=== PATIENT | male | born 1960 | race Caucasian/White ===

== ENCOUNTER 2023-04-03 16:21 | Inpatient (IN) | payer BC, OTHER ==
[2023-04-03 17:23] LABS: Basophils % (A) 0 %; Eosinophils # (A) 0.2 k/uL (0-0.7); Eosinophils % (A) 3 %; HCT 48.3 % (39.0-53.0); HGB 16.3 gm/dL (13.0-17.5); Lymphocytes # (A) 2.6 k/uL (1.0-4.8); Lymphocytes % (A) 34 %; MCH 30.6 pg (25.0-35.0); MCHC 33.7 g/dL (31.0-37.0); MCV 90.7 fL (80.0-100.0); Mean Platelet Volume 7.3; Monocytes # (A) 0.5 k/uL (0-1.0); Monocytes % (A) 7 %; Neutrophils # (A) 4.2 k/uL (1.3-7.7); Neutrophils % (A) 55 %; Platelet Count 332 k/uL (150-450); RBC 5.32 m/uL (4.30-5.90); RDW 13.1 % (11.5-15.5); WBC 7.7 k/uL (3.8-10.6)
[2023-04-03 17:33] LABS: ALT 39 U/L (4-49); AST 32 U/L (17-59); African American GFR (CKD) >90 (>60 ml/min/1.73 sqM); Albumin 4.4 g/dL (3.5-5.0); Alkaline Phosphatase 93 U/L (38-126); Anion Gap 12 mmol/L; Blood Urea Nitrogen 22 mg/dL (9-20); Calcium 9.8 mg/dL (8.4-10.2); Carbon Dioxide 22 mmol/L (22-30); Chloride 107 mmol/L (98-107); Glucose 83 mg/dL (74-99); Non-African American GFR(CKD) 89 (>60 ml/min/1.73 sqM); Potassium 4.2 mmol/L (3.5-5.1); Sodium 141 mmol/L (137-145); Total Bilirubin 0.4 mg/dL (0.2-1.3); Total Protein 7.8 g/dL (6.3-8.2)
--- NOTE | 2023-04-03 17:34 | ED ---
Recheck HPI - General Chief Complaint: Recheck/Abnormal Lab/Rx Stated Complaint: right side numbness,hypertension-sent from [facility] Time Seen by Provider: 04/03/23 17:30 Source: patient, RN notes reviewed, old records reviewed Mode of arrival: wheelchair Limitations: no limitations - History of Present Illness Initial Comments: This is a 62-year-old male to the emergency for evaluation today. Patient presents today for evaluation regards to hypertension. On further questioning though here in the emergency room it today. Patient states patient has significant right-sided weakness, right hand weakness unable to drink his coffee unable to do things he normally does with his right hand as well as right-sided right arm weakness numbness and tingling. is concern for stroke and patient's blood pressure was elevated today patient has never seen a physician and has no prior doctor care MD Complaint: other (Elevated blood pressure and then states patient has right-sided weakness) -: hour(s) Returns Today for: persistent/worsening pain related to initial visit Symptoms Since Prior Visit: no new symptoms, worsening pain Context: called for abnormal lab result Associated Symptoms: none Treatments Prior to Arrival: other (0) - Related Data Previous Rx's Medication Instructions Recorded Aspirin 81 mg PO DAILY #30 tab 04/05/23 Atorvastatin [Lipitor] 80 mg PO HS #30 tab 04/05/23 Clopidogrel [Plavix] 75 mg PO DAILY #30 tab 04/05/23 amLODIPine [Norvasc] 5 mg PO DAILY #30 tab 04/05/23 Allergies Allergy/AdvReac Type Severity Reaction Status Date / Time No Known Allergies Allergy Verified 04/03/23 18:06 Review of Systems ROS Statement: Those systems with pertinent positive or pertinent negative responses have been documented in the HPI. ROS Other: All systems not noted in ROS Statement are negative. Past Medical History Past Medical History: No Reported History History of Any Multi-Drug Resistant Organisms: None Reported Past Surgical History: No Surgical Hx Reported Past Psychological History: No Psychological Hx Reported Smoking Status: Former smoker Past Alcohol Use History: Occasional Past Drug Use History: None Reported - Past Family History Mother Family Medical History: Cancer Father Family Medical History: Cancer Additional Family Medical History / Comment(s): colon ca General Exam Limitations: no limitations General appearance: alert, in no apparent distress Head exam: Present: atraumatic, normocephalic, normal inspection Eye exam: Present: normal appearance, PERRL, EOMI. Absent: scleral icterus, conjunctival injection, periorbital swelling ENT exam: Present: normal exam, mucous membranes moist Neck exam: Present: normal inspection. Absent: tenderness, meningismus, lymphadenopathy Respiratory exam: Present: normal lung sounds bilaterally. Absent: respiratory distress, wheezes, rales, rhonchi, stridor Cardiovascular Exam: Present: regular rate, normal rhythm, normal heart sounds. Absent: systolic murmur, diastolic murmur, rubs, gallop, clicks GI/Abdominal exam: Present: soft, normal bowel sounds. Absent: distended, tenderness, guarding, rebound, rigid Extremities exam: Present: normal inspection, full ROM, normal capillary refill. Absent: tenderness, pedal edema, joint swelling, calf tenderness Back exam: Present: normal inspection Neurological exam: Present: alert, oriented X3, CN II-XII intact Psychiatric exam: Present: normal affect, normal mood Skin exam: Present: warm, dry, intact, normal color. Absent: rash Course Vital Signs 04/03/23 04/03/23 04/03/23 16:33 16:36 17:30 Temperature 98 F 98.4 F Pulse Rate 85 82 82 Pulse Rate [ Pulse Oximetery ] Respiratory 16 20 17 Rate Blood Pressure 182/101 152/108 156/98 Blood Pressure [Right Arm] O2 Sat by Pulse 97 97 97 Oximetry 04/03/23 04/03/23 04/03/23 18:00 19:00 21:00 Temperature Pulse Rate 79 80 75 Pulse Rate [ Pulse Oximetery ] Respiratory 18 18 16 Rate Blood Pressure 152/108 143/106 140/75 Blood Pressure [Right Arm] O2 Sat by Pulse 97 96 96 Oximetry 04/03/23 04/03/23 04/04/23 22:00 22:07 00:00 Temperature Pulse Rate 71 75 65 Pulse Rate [ Pulse Oximetery ] Respiratory 17 26 H 15 Rate Blood Pressure 146/102 155/90 143/86 Blood Pressure [Right Arm] O2 Sat by Pulse 98 97 96 Oximetry 04/04/23 04/04/23 04/04/23 04:00 05:00 06:00 Temperature Pulse Rate 70 73 64 Pulse Rate [ Pulse Oximetery ] Respiratory 18 18 16 Rate Blood Pressure 132/97 119/80 140/85 Blood Pressure [Right Arm] O2 Sat by Pulse 97 97 98 Oximetry 04/04/23 04/04/23 04/04/23 07:00 07:57 08:00 Temperature Pulse Rate 66 75 73 Pulse Rate [ Pulse Oximetery ] Respiratory 16 18 18 Rate Blood Pressure 146/84 145/94 145/94 Blood Pressure [Right Arm] O2 Sat by Pulse 98 99 98 Oximetry 04/04/23 04/04/23 04/04/23 09:00 10:00 11:00 Temperature 97.4 F L Pulse Rate 80 71 73 Pulse Rate [ Pulse Oximetery ] Respiratory 16 16 17 Rate Blood Pressure 159/113 144/104 Blood Pressure [Right Arm] O2 Sat by Pulse 96 97 96 Oximetry 04/04/23 04/04/23 13:43 13:50 Temperature 97.7 F Pulse Rate 87 Pulse Rate [ 83 Pulse Oximetery ] Respiratory 16 18 Rate Blood Pressure 142/88 Blood Pressure 178/99 [Right Arm] O2 Sat by Pulse 96 99 Oximetry - Reevaluation(s) Reevaluation #1: 04/04/23 01:28 Medical record is reviewed 04/04/23 01:28 Patient is not a code stroke secondary to symptoms greater than 2 weeks Reevaluation #2: 04/04/23 01:28 Patient has no change in symptoms here in the ER Reevaluation #3: 04/04/23 01:28 Patient informed results questions answered Reevaluation #4: 04/04/23 01:28 Was pt. sent in by a medical professional or institution (, PA, ASSISTANT MANAGER RETAIL, urgent care, hospital, or group home...) When possible be specific @ -no Did you speak to anyone other than the patient for history (EMS, parent, family, police, friend...)? What history was obtained from this source @ -no Did you review nursing and triage notes (agree or disagree)? Why? @ -agree Are old charts reviewed (outside hosp., previous admission, EMS record, old EKG, old radiological studies, urgent care reports/EKG's, group home records)? Report findings @ -yes Differential Diagnosis (chest pain, altered mental status, abdominal pain women, abdominal pain men, vaginal bleeding, weakness, fever, dyspnea, syncope, headache, dizziness, GI bleed, back pain, seizure, CVA, palpatations, mental health, musculoskeletal)? @ -prior EKG interpreted by me (3pts min.). @ -yes X-rays interpreted by me (1pt min.). @ -no CT interpreted by me (1pt min.). @ -yes U/S interpreted by me (1pt. min.). @ -no What testing was considered but not performed or refused? (CT, X-rays, U/S, labs)? Why? @ -none What meds were considered but not given or refused? Why? @ -none Did you discuss the management of the patient with other professionals (professionals i.e. , PA, ASSISTANT MANAGER RETAIL, lab, RT, psych nurse, social insurance administrator, zoo veterinarian, teacher, mounted police officer, protective services case worker)? Give summary @ -no Was smoking cessation discussed for >3mins.? @ -no Was critical care preformed (if so, how long)? @ -no Were there social determinants of health that impacted care today? How? (Homelessness, low income, unemployed, alcoholism, drug addiction, transportation, low edu. Level, literacy, decrease access to med. care, detention, rehab)? @ -none Was there de-escalation of care discussed even if they declined (Discuss DNR or withdrawal of care, Hospice)? DNR status @ -no What co-morbidities impacted this encounter? (DM, HTN, Smoking, COPD, CAD, Cancer, CVA, ARF, Chemo, Hep., AIDS, mental health diagnosis, sleep apnea, morbid obesity)? @ -none Was patient admitted / discharged? Hospital course, mention meds given and route, prescriptions, significant lab abnormalities, going to OR and other pertinent info. @ - 62 male will be admitted for CVA. Patient does have occlusion left interna l carotid artery patient does have acute CVA left-sided with right-sided hand weakness leg weakness and severely elevated blood pressure. Admitted Undiagnosed new problem with uncertain prognosis? @ -no Drug Therapy requiring intensive monitoring for toxicity (Heparin, Nitro, Insulin, Cardizem)? @ -no Were any procedures done? @ -no Diagnosis/symptom? @ -CVA, hypertensive emergency Acute, or Chronic, or Acute on Chronic? @ -Acute Uncomplicated (without systemic symptoms) or Complicated (systemic symptoms)? @ -Complicated Side effects of treatment? @ -no Exacerbation, Progression, or Severe Exacerbation? @ -exacerbation Poses a threat to life or bodily function? How? (Chest pain, USA, NC, pneumonia, PE, COPD, DKA, ARF, appy, cholecystitis, CVA, Diverticulitis, Homicidal, Suicidal, threat to staff... and all critical care pts) @ -yes with severe CVA Reevaluation #5: 04/04/23 01:28 Differential CVA Ischemic stroke, hemorrhagic stroke, brain tumor, atypical migraine, Wernicke's encephalopathy, seizure, multiple sclerosis, meningitis, encephalitis, hypoglycemia, Guillain-Weathers, electrolytes disturbance, myasthenia gravis.... This is not meant to be an all-inclusive list - Consultations Consultation #1: Spoke with the physicians agreeable with the patient Medical Decision Making - Medical Decision Making 62 male will be admitted for CVA. Patient does have occlusion left internal carotid artery patient does have acute CVA left-sided with right-sided hand weakness leg weakness and severely elevated blood pressure. - Lab Data Result diagrams: 04/03/23 16:58 04/03/23 16:58 Lab Results 04/03/23 04/03/23 04/03/23 Range/Units 16:58 16:58 16:58 WBC 7.7 (3.8-10.6) k/uL RBC 5.32 (4.30-5.90) m/uL Hgb 16.3 (13.0-17.5) gm/dL Hct 48.3 (39.0-53.0) % MCV 90.7 (80.0-100.0) fL MCH 30.6 (25.0-35.0) pg MCHC 33.7 (31.0-37.0) g/dL RDW 13.1 (11.5-15.5) % Plt Count 332 (150-450) k/uL MPV 7.3 Neutrophils % 55 % Lymphocytes % 34 % Monocytes % 7 % Eosinophils % 3 % Basophils % 0 % Neutrophils # 4.2 (1.3-7.7) k/uL Lymphocytes # 2.6 (1.0-4.8) k/uL Monocytes # 0.5 (0-1.0) k/uL Eosinophils # 0.2 (0-0.7) k/uL Basophils # 0.0 (0-0.2) k/uL Sodium 141 (137-145) mmol/L Potassium 4.2 (3.5-5.1) mmol/L Chloride 107 (98-107) mmol/L Carbon Dioxide 22 (22-30) mmol/L Anion Gap 12 mmol/L BUN 22 H (9-20) mg/dL Creatinine 0.91 (0.66-1.25) mg/dL Est GFR (CKD-EPI)AfAm >90 (>60 ml/min/1.73 sqM) Est GFR (CKD-EPI)NonAf 89 (>60 ml/min/1.73 sqM) Glucose 83 (74-99) mg/dL Estimated Ave Glu mg/dL mg/dL Hemoglobin A1c (<=6.0) % Calcium 9.8 (8.4-10.2) mg/dL Total Bilirubin 0.4 (0.2-1.3) mg/dL AST 32 (17-59) U/L ALT 39 (4-49) U/L Alkaline Phosphatase 93 (38-126) U/L Troponin I <0.012 (0.000-0.034) ng/mL Total Protein 7.8 (6.3-8.2) g/dL Albumin 4.4 (3.5-5.0) g/dL Triglycerides (0.00-149.00) mg/dL Cholesterol (0.00-200.00) mg/dL LDL Cholesterol, Calc (0.0-131.0) mg/dL VLDL Cholesterol, Calc (5.00-40.00) mg/dL HDL Cholesterol (40.00-60.00) mg/dL Cholesterol/HDL Ratio Ratio 04/03/23 04/03/23 Range/Units 16:58 16:58 WBC (3.8-10.6) k/uL RBC (4.30-5.90) m/uL Hgb (13.0-17.5) gm/dL Hct (39.0-53.0) % MCV (80.0-100.0) fL MCH (25.0-35.0) pg MCHC (31.0-37.0) g/dL RDW (11.5-15.5) % Plt Count (150-450) k/uL MPV Neutrophils % % Lymphocytes % % Monocytes % % Eosinophils % % Basophils % % Neutrophils # (1.3-7.7) k/uL Lymphocytes # (1.0-4.8) k/uL Monocytes # (0-1.0) k/uL Eosinophils # (0-0.7) k/uL Basophils # (0-0.2) k/uL Sodium (137-145) mmol/L Potassium (3.5-5.1) mmol/L Chloride (98-107) mmol/L Carbon Dioxide (22-30) mmol/L Anion Gap mmol/L BUN (9-20) mg/dL Creatinine (0.66-1.25) mg/dL Est GFR (CKD-EPI)AfAm (>60 ml/min/1.73 sqM) Est GFR (CKD-EPI)NonAf (>60 ml/min/1.73 sqM) Glucose (74-99) mg/dL Estimated Ave Glu mg/dL 114 mg/dL Hemoglobin A1c 5.6 (<=6.0) % Calcium (8.4-10.2) mg/dL Total Bilirubin (0.2-1.3) mg/dL AST (17-59) U/L ALT (4-49) U/L Alkaline Phosphatase (38-126) U/L Troponin I (0.000-0.034) ng/mL Total Protein (6.3-8.2) g/dL Albumin (3.5-5.0) g/dL Triglycerides 380.00 H (0.00-149.00) mg/dL Cholesterol 319.00 H (0.00-200.00) mg/dL LDL Cholesterol, Calc 197.6 H (0.0-131.0) mg/dL VLDL Cholesterol, Calc 76.00 H (5.00-40.00) mg/dL HDL Cholesterol 45.40 (40.00-60.00) mg/dL Cholesterol/HDL Ratio 7.03 Ratio - EKG Data -: EKG Interpreted by Me (EKG is sinus 84 RI 136 QRS 97 QTC 410) - Radiology Data Radiology results: report reviewed (CT brain CT head neck does shown left internal carotid artery blockage), image reviewed Critical Care Time Critical Care Time: Yes Total Critical Care Time: 31 Disposition Clinical Impression: CVA (cerebral vascular accident), Hypertensive emergency Disposition: ADMITTED IP TO THIS HOSP Condition: Serious Is patient prescribed a controlled substance at d/c from ED?: No Time of Disposition: 20:45
[2023-04-03] MEDS ORDERED: SODIUM CHLORIDE 0.9% 1,000 ML IV STA (18:39)
--- NOTE | 2023-04-03 20:32 | CT ---
EXAMINATION TYPE: CT brain wo con CT DLP: 1120.30 mGycm, Automated exposure control for dose reduction was used. DATE OF EXAM: 04/03/2023 8:23 PM COMPARISON: Same day CT head neck. CLINICAL INDICATION:Male, 62 years old with history of cva, Rt side weakness, no hx of a stroke. TECHNIQUE: Brain: Axial CT images of the brain were obtained with coronal and sagittal reformats created and rev iewed. Contrast used: None. Oral contrast used: None. FINDINGS: Brain: Extra-axial spaces: No abnormal extra-axial fluid collections. Ventricular system: Within normal limits Cerebral parenchyma: Remote left frontal lobe injury. Suspected left caudate nucleus/tamez radiata i njury. No acute intraparenchymal hemorrhage or mass effect. The carrillo-white junction is well differen tiated. Cerebellum: Unremarkable. Mass effect: No evidence of midline shift. Intracranial vasculature: Atherosclerotic calcifications of the intracranial vessels. Partially visua lized left internal carotid artery occlusion. Soft tissues: Normal. Calvarium/osseous structures: No depressed skull fracture. Paranasal sinuses and mastoid air cells: Mild scattered paranasal sinus disease. Visualized orbits: Orbital contents are intact. IMPRESSION: 1. No acute intracranial process. Please see dedicated CTA head neck for findings regarding the left internal carotid artery occlusion. 2. Remote appearing left caudate/tamez radiata nucleus and left frontal lobe injuries.
--- NOTE | 2023-04-03 20:37 | CT ---
EXAMINATION TYPE: CT angio head neck CT DLP: 346.50 mGycm, Automated exposure control for dose reduction was used. DATE OF EXAM: 04/03/2023 8:25 PM COMPARISON: CT head same day. CLINICAL INDICATION:Male, 62 years old with history of cva; PHH, Rt side weakness, no hx of a stroke. TECHNIQUE: Axially acquired helical CT angiogram of the head and neck was obtained with contrast. Axi al images are supplemented with 3D reconstructions which [facility] NASCET criteria used. Contrast used:65 ml mL of Isovue 370 with IV Contrast, Oral contrast used: None. FINDINGS: CTA HEAD: No evidence of acute intracranial hemorrhage, mass effect, or midline shift. The ventricles, sulci, a nd cisterns are unremarkable. Reconstitution of the left internal carotid artery within the pilot station of [place]. Encephalomalacia of the left frontal lobe suggested. The visualized portions of the internal carotid arteries, middle cerebral arteries, anterior cerebral arteries, and posterior cerebral arteries are patent. The basilar and vertebral arteries are patent. CTA NECK: Right Carotid System: The common carotid and external carotid arteries are patent. There is less than 25-50 % stenosis at t he carotid bifurcation secondary to calcified/noncalcified plaque. The rest of the internal carotid a rtery is patent. Left Carotid System: The common carotid artery and external carotid artery are patent there is occlusion of the internal c arotid artery just past its origin which extends into the pilot station of [place]. Reconstitution at the lef t MCA with a decreased caliber compared to the right. Vertebral arteries are patent without evidence hemodynamically significant stenosis. There is a three-vessel aortic arch. The origins of the great vessels are patent. No evidence of hemo dynamically significant stenosis. Upper thorax: Paraseptal and centrilobular emphysema changes are mild. IMPRESSION: 1. Occlusion of the left internal carotid artery extending from its origin into the pilot station of [place] . 2. Right carotid bifurcation predominantly calcified plaque with less 25-50% stenosis. 3. No evidence of dissection of the cervical internal carotid arteries or vertebral arteries. 4. No evidence of intracranial high-grade stenosis or intracranial aneurysm. 5. Mild emphysema changes.
[2023-04-03] MEDS ORDERED: ASPIRIN 325 MG TAB PO STA (20:45)
[2023-04-03] MEDS: SODIUM CHLORIDE 0.9% 1,000 ML IV SCH (21:47)
[2023-04-03] MEDS: ATORVASTATIN 80 MG TAB PO SCH (21:52)
--- NOTE | 2023-04-04 05:23 | P.HPIM ---
History of Present Illness H&P Date: 04/03/23 Chief Complaint: uncontrolled hypertension 62 year old male with no significant past medical history , patient does not see a doctor ED notified me that patient suspected to have subacute stroke. patient reports going to the chiropractor today , who found his blood pressure very high and recommended he goes to the ED. he otherwise denies any compliant , he denies headache, changes in vision or hearing , denies chest pain or trouble breathing, denies nausea or vomiting, he denies any focal neurodeficits. however, then he mentions he has been noticing right leg numbness over past few days. he denies any falls , or injuries, denies syncope, or head injury , denies any cardiac history per ED note, at bedside earlier , mentioned concerns regarding stroke, as patient has been weak on his right side, dropping cups from his hands, and having difficulty walking. patient denies that. during my interview. he admits to tobacco smoking, denies illicit drugs or alcohol review of systems Pertinent positives as noted in HPI. All other systems were reviewed and are negative on exam Constitutional: No acute distress, conversant, pleasant Eyes: Anicteric sclerae, moist conjunctiva, Pupils equal round reactive to light ENMT: NC/AT Oropharynx clear, no erythema, or exudates Neck: Supple, no masses, or JVD No carotid bruits No thyromegaly Lungs: Clear to auscultation Clear to percussion Normal respiratory effort, no accessory muscle use Cardiovascular: Heart regular in rate and rhythm, No murmurs, gallops, or rubs No peripheral edema Abdominal: Soft Nontender, no guarding, rebound or rigidity Abdomen moving with respiration Normoactive bowel sounds No hepatomegaly, No splenomegaly No palpable mass No abdominal wall hernia noted Extremities: No digital cyanosis No clubbing Pedal pulses intact and symmetrical Radial pulses intact and symmetrical No calf tenderness Psychiatric: Alert and oriented to person, place and time Appropriate affect fair judgement Neuro Muscles Strength 5/5 in all 4 extremities Sensation to light touch grossly present throughout Cranial nerves II-XII grossly intact finger nose exam intact Lymphatics: no palpable cervical or supraclavicular lymph nodes Past Medical History Past Medical History: No Reported History History of Any Multi-Drug Resistant Organisms: None Reported Past Surgical History: No Surgical Hx Reported Past Psychological History: No Psychological Hx Reported Smoking Status: Former smoker Past Alcohol Use History: Occasional Past Drug Use History: None Reported Medications and Allergies Home Medications Medication Instructions Recorded Confirmed Type No Known Home Medications 04/03/23 04/03/23 History Allergies Allergy/AdvReac Type Severity Reaction Status Date / Time No Known Allergies Allergy Verified 04/03/23 18:06 Physical Exam Vitals: Vital Signs Temp Pulse Resp BP Pulse Ox 04/04/23 04:00 70 18 132/97 97 04/04/23 00:00 65 15 143/86 96 04/03/23 22:07 75 26 H 155/90 97 04/03/23 22:00 71 17 146/102 98 04/03/23 21:00 75 16 140/75 96 04/03/23 19:00 80 18 143/106 96 04/03/23 18:00 79 18 152/108 97 04/03/23 17:30 82 17 156/98 97 04/03/23 16:36 98.4 F 82 20 152/108 97 04/03/23 16:33 98 F 85 16 182/101 97 Intake and Output 04/03/23 04/03/23 04/04/23 14:59 22:59 06:59 Other: Weight 90.718 kg Results CBC & Chem 7: 04/03/23 16:58 04/03/23 16:58 Labs: Abnormal Lab Results - Last 24 Hours (Table) 04/03/23 Range/Units 16:58 BUN 22 H (9-20) mg/dL Assessment and Plan Assessment: 62 year old male , does not see a doctor , denies any past medical history coming in for elevated blood pressure, I discussed the case with ED doc and I accepted the admission over concerns regarding subacute stroke, with anticipated length of stay < 2midnights subacute stroke Left internal carotid artery stenosis neuro check s fall precautions check lipid panel , echocardiogram ASA, statin neuro consult CT brain showed no acute pathology , CTA head and neck showed occlusion of the left internal carotid artery , , right carotid bifuration with 25-50% stenosis vascular surgery consult uncontrolled hypertension start patient on amlodipine 5 mg po daily full code DVT PPX heparin sc tid 5000 units PT/OT eval fall precautions blood work unremarkable WBC 7 Hgb 16 BUN 22 Cr 0.9 Na 141 , K 4.2
[2023-04-04] MEDS: SODIUM CHLORIDE 0.9% 1,000 ML IV SCH ×2 (05:50→14:29)
[2023-04-04] MEDS: amLODIPine 5 MG TAB PO SCH (08:31)
[2023-04-04] MEDS: ASPIRIN 81 MG PO SCH (08:31)
[2023-04-04] MEDS: NICOTINE 21MG/24HR PATCH TRANSDERM SCH (08:31)
[2023-04-04] MEDS ORDERED: ASPIRIN 325 MG TAB PO SCH (09:00)
[2023-04-04 09:16] LABS: Chol/HDL Ratio 7.03 Ratio; LDL Cholesterol,Calculated 197.6 mg/dL (0.0-131.0)
--- NOTE | 2023-04-04 09:49 | P.GSCN ---
History of Present Illness Consult date: 04/04/23 Reason for Consult: Internal carotid artery stenosis Requesting physician: Dustin Soliman History of present illness: This is a pleasant 62-year-old male who presented to the emergency department by recommendation of his chiropractor. Yesterday patient went to see his chiropractor regarding right lower extremity weakness and numbness. Apparently when he was there he had elevated blood pressure and the chiropractor told him to come to the emergency department for further evaluation. When patient arrived blood pressures range from the 180s over the 100s. Patient has no known past medical history, has not seen a PCP since 2019 but denies any previous medical history. Patient is a pack per day smoker. Apparently patient has also been having some right upper extremity weakness although he denied that there is reports from the ER physician that his states he's been having weakness in that right upper extremity and not being able to hold onto cups as well. He states the right lower extremity numbness and tingling and weakness has been going on for a least a couple weeks. Patient denies any chest pain, shortness of breath, abdominal pain, nausea, vomiting, fevers or chills. Patient presents was concerned that he may have had a stroke. They did a stroke workup with the brain CT that did report no acute intracranial process, but left internal carotid artery occlusion. Remote appearing left caudate/tamez radiata nucleus and left frontal lobe injuries. Vascular surgery was consulted for left ICA stenosis. Review of Systems A 14 point review systems was completed all pertinent positives and negatives as stated in the HPI. Past Medical History Past Medical History: No Reported History History of Any Multi-Drug Resistant Organisms: None Reported Past Surgical History: No Surgical Hx Reported Past Psychological History: No Psychological Hx Reported Smoking Status: Former smoker Past Alcohol Use History: Occasional Past Drug Use History: None Reported Medications and Allergies Home Medications Medication Instructions Recorded Confirmed Type No Known Home Medications 04/03/23 04/03/23 History Allergies Allergy/AdvReac Type Severity Reaction Status Date / Time No Known Allergies Allergy Verified 04/03/23 18:06 Surgical - Exam Vital Signs Temp Pulse Resp BP Pulse Ox 98 F 85 16 182/101 97 04/03/23 16:33 04/03/23 16:33 04/03/23 16:33 04/03/23 16:33 04/03/23 16:33 General appearance: The patient is alert, oriented, appears in no acute distress. HET: Head is normocephalic and atraumatic. Pupils are equal and reactive. Neck: Supple. Heart: Regular. Lungs: Equal expansion, normal respiratory effort. Abdomen: Soft, nontender, nondistended. Extremities: Normal skin color and turgor. Palpable radial and pedal pulses. Neurological: Patient is alert and oriented 3. Speech is fluent, he answers questions appropriately and follows commands. Right upper extremity weakness. Results - Labs 04/03/23 16:58 04/03/23 16:58 Abnormal Lab Results - Last 24 Hours (Table) 04/03/23 Range/Units 16:58 BUN 22 H (9-20) mg/dL Diabetes panel 04/03/23 Range/Units 16:58 Sodium 141 (137-145) mmol/L Potassium 4.2 (3.5-5.1) mmol/L Chloride 107 (98-107) mmol/L Carbon Dioxide 22 (22-30) mmol/L BUN 22 H (9-20) mg/dL Creatinine 0.91 (0.66-1.25) mg/dL Glucose 83 (74-99) mg/dL Calcium 9.8 (8.4-10.2) mg/dL AST 32 (17-59) U/L ALT 39 (4-49) U/L Alkaline Phosphatase 93 (38-126) U/L Total Protein 7.8 (6.3-8.2) g/dL Albumin 4.4 (3.5-5.0) g/dL Calcium panel 04/03/23 Range/Units 16:58 Calcium 9.8 (8.4-10.2) mg/dL Albumin 4.4 (3.5-5.0) g/dL Pituitary panel 04/03/23 Range/Units 16:58 Sodium 141 (137-145) mmol/L Potassium 4.2 (3.5-5.1) mmol/L Chloride 107 (98-107) mmol/L Carbon Dioxide 22 (22-30) mmol/L BUN 22 H (9-20) mg/dL Creatinine 0.91 (0.66-1.25) mg/dL Glucose 83 (74-99) mg/dL Calcium 9.8 (8.4-10.2) mg/dL Adrenal panel 04/03/23 Range/Units 16:58 Sodium 141 (137-145) mmol/L Potassium 4.2 (3.5-5.1) mmol/L Chloride 107 (98-107) mmol/L Carbon Dioxide 22 (22-30) mmol/L BUN 22 H (9-20) mg/dL Creatinine 0.91 (0.66-1.25) mg/dL Glucose 83 (74-99) mg/dL Calcium 9.8 (8.4-10.2) mg/dL Total Bilirubin 0.4 (0.2-1.3) mg/dL AST 32 (17-59) U/L ALT 39 (4-49) U/L Alkaline Phosphatase 93 (38-126) U/L Total Protein 7.8 (6.3-8.2) g/dL Albumin 4.4 (3.5-5.0) g/dL - Imaging Comments: CT angiogram head and neck: Occlusion of the left internal carotid artery extending from its origin into the [place]. Right carotid bifurcation predominantly calcified plaque with less than 25-50% stenosis. No evidence of dissection of the cervical internal carotid arteries or vertebral arteries. No evidence of intracranial high-grade stenosis or intracranial aneurysm. Mild emphysema changes. Brain CT: No acute intracranial process. Please see dedicated CTA head and neck for findings regarding the left internal carotid artery occlusion. Remote appearing left caudate/tamez radiata nucleus and left front lobe injuries Assessment and Plan Assessment: 1. Left internal carotid artery occlusion extending from its origin to the [place] 2. No hemodynamically significant Right internal carotid stenosis, 25-50% stenosis per CTA 3. Right-sided weakness 4. Hypertension 5. Pack per day smoker Plan: 1. Continue symptomatic and supportive care 2. Continue with workup recommended per neurology 3. Would recommend dual antiplatelet therapy and statin once cleared by neurology 4. Maintain Optimal blood pressures 5. There is no indication for any vascular surgical intervention for left carotid occlusion. Patient will need close outpatient surveillance to monitor for right carotid stenosis. 6. Smoking cessation discussed with patient, nicotine patch prescribed Thank you for this consultation. The impression and plan of care has been dictated as directed. Dr. Condon I performed a history and examination of this patient, discussed the same with the dictator. I agree with the dictator's note ,documented as a scribe. Any additional findings or plans will be noted.
--- NOTE | 2023-04-04 12:57 | CA ---
Transthoracic Echo Report Name: Noel Erwin Age: 62 Gender: M : 1960 Exam Date: 04/04/2023 07:49 Exam Location: [facility] Ht (in): 70 Wt (lb): 200 Ordering Physician: Dustin Soliman MD Attending/Referring Phys: [id number], Jourdan Quantity Surveyor Emmanuel Menon Procedure CPT: Indications: stroke Cardiac Hx: Technical Quality: Fair Contrast 1: Total Dose (mL): Contrast 2: Total Dose (mL): MEASUREMENTS (Male / Female) Normal Values 2D ECHO LV Diastolic Diameter PLAX 5.0 cm 4.2 - 5.9 / 3.9 - 5.3 cm LV Systolic Diameter PLAX 2.6 cm IVS Diastolic Thickness 1.4 cm 0.6 - 1.0 / 0.6 - 0.9 cm LVPW Diastolic Thickness 1.4 cm 0.6 - 1.0 / 0.6 - 0.9 cm LV Relative Wall Thickness 0.6 RV Internal Dim ED PLAX 3.1 cm LVOT Diameter 2.3 cm Aortic Root Diameter 3.5 cm LA Systolic Diameter LX 3.1 cm 3.0 - 4.0 / 2.7 - 3.8 cm LV Diastolic Volume MOD BP 97.1 cm??? 67 - 155 / 56 - 104 cm??? LV Systolic Volume MOD BP 37.4 cm??? 22 - 58 / 19 - 49 cm??? LV Ejection Fraction MOD BP 61.5 % >= 55 % LV Cardiac Index MOD BP 2151.0 cm???/min???m??? LV Diastolic Volume MOD 4C 95.9 cm??? LV Systolic Volume MOD 4C 42.3 cm??? LV Ejection Fraction MOD 4C 55.9 % LV Cardiac Index MOD 4C 1930.3 cm???/min???m??? LV Diastolic Length 4C 8.6 cm LV Systolic Length 4C 6.6 cm LV Diastolic Volume MOD 2C 94.1 cm??? LV Systolic Volume MOD 2C 30.3 cm??? LV Ejection Fraction MOD 2C 67.8 % LV Cardiac Index MOD 2C 2300.3 cm???/min???m??? LV Diastolic Length 2C 8.1 cm LV Systolic Length 2C 7.2 cm LA Volume 50.1 cm??? 18 - 58 / 22 - 52 cm??? LA Volume Index 23.4 cm???/m??? 16 - 28 cm???/m??? DOPPLER AV Peak Velocity 101.8 cm/s AV Peak Gradient 4.1 mmHg LVOT Peak Velocity 91.0 cm/s LVOT Peak Gradient 3.3 mmHg LVOT Velocity Time Integral 20.9 cm LVOT Stroke Volume 88.5 cm??? LVOT Stroke Volume Index 42.4 ml/m??? LVOT Cardiac Index 3190.6 cm???/min???m??? AV Area Cont Eq pk 3.8 cm??? MV Peak Velocity 94.1 cm/s MV Peak Gradient 3.5 mmHg MV Mean Velocity 54.8 cm/s MV Mean Gradient 1.4 mmHg MV Velocity Time Integral 32.8 cm Mitral E Point Velocity 77.8 cm/s Mitral A Point Velocity 80.4 cm/s Mitral E to A Ratio 1.0 MV Deceleration Time 294.5 ms MV E' Velocity 8.3 cm/s Mitral E to MV E' Ratio 9.4 TR Peak Velocity 128.3 cm/s TR Peak Gradient 6.6 mmHg PV Peak Velocity 82.2 cm/s PV Peak Gradient 2.7 mmHg FINDINGS Left Ventricle Normal LV size and wall thickness. Left ventricular ejection fraction is estimated at 55-60 %. Right Ventricle Normal right ventricular size. Right Atrium Normal right atrial size. Left Atrium Normal left atrial size. Mitral Valve Structurally normal mitral valve. Trace MR. Aortic Valve Trileaflet aortic valve. No aortic regurgitation. No aortic stenosis. Tricuspid Valve Structurally normal tricuspid valve. Pulmonic Valve Pulmonic valve not well visualized. Trace PI. Pericardium Normal pericardium. Aorta Normal size aortic root . CONCLUSIONS Normal LV function Previewed by: Dr. Fredis Jurado MD (Electronically Signed) Final Date: 04 April 2023 12:56
[2023-04-04] MEDS ORDERED: CLOPIDOGREL 75 MG TAB PO STA (13:15)
--- NOTE | 2023-04-04 14:39 | P.PN ---
Subjective Progress Note Date: 04/04/23 No new complaints. No weakness, no sensory loss. Gen: awake, alert HEENT: normocephalic, atraumatic, good hearing acuity, moist mucous membranes Resp: good air exchange, breathing comfortably with no accessory muscle use CVS: good distal perfusion x 4, GI: soft, NTTP, ND : no SPT, no CVAT, montanez catheter not present MSK: no pitting edema, no clubbing Neuro: non-focal, moving all extremities Psych: cooperative, euthymic mood Hospital course: 62-year-old man with medical history of nicotine abuse presented for evaluation of hypertensive urgency with suspected subacute stroke. In the emergency room, patient was afebrile, 182/101, heart rate 85, 97% on room air. CBC was unremarkable. Basic metabolic panel was unremarkable. Liver function tests are unremarkable. Troponins less than 0.012. EKG showed normal sinus rhythm with frequent PVCs. Brain CT showed no acute intracranial process, remote appearing left caudate/tamez radiata nucleus and left frontal lobe injuries. CT angiography showed occlusion of the left ICA, right carotid bifurcation with 25- 50% stenosis. Cases assessment emergency room provider decision was made to admit the patient to the hospital for further evaluation of TIA. Assessment/plan: Hypertensive urgency TIA Left carotid stenosis, 100% occlusion Right carotid stenosis, 25-50% stenosis -Neurology consult is pending -Vascular surgery consult is appreciated, they recommended medical management at this time -Target blood pressure is 140/90 -Continue patient on 5 mg of amlodipine daily -Aspirin 81 mg, atorvastatin 80 mg Nicotine abuse Hyperlipidemia -Statin as above -Nicotine patch Patient is full code Objective - Vital Signs Vital signs: Vital Signs Temp 97.7 F 04/04/23 13:43 Pulse 87 04/04/23 13:50 Resp 18 04/04/23 13:50 BP 142/88 04/04/23 13:50 Pulse Ox 99 04/04/23 13:50 FiO2 Intake & Output 04/03/23 04/04/23 04/04/23 18:59 06:59 18:59 Intake Total 240 Balance 240 Weight 90.718 kg 90.718 kg Intake: Oral 240 Other: # Voids 1 - Labs CBC & Chem 7: 04/03/23 16:58 04/03/23 16:58 Labs: Abnormal Lab Results - Last 24 Hours (Table) 04/03/23 04/03/23 Range/Units 16:58 16:58 BUN 22 H (9-20) mg/dL Triglycerides 380.00 H (0.00-149.00) mg/dL Cholesterol 319.00 H (0.00-200.00) mg/dL LDL Cholesterol, Calc 197.6 H (0.0-131.0) mg/dL VLDL Cholesterol, Calc 76.00 H (5.00-40.00) mg/dL
--- NOTE | 2023-04-04 15:01 | P.CNNES ---
History of Present Illness Consult date: 04/04/23 Requesting physician: Tru Negro Reason for Consult: CVA History of Present Illness: Patient is a 62-year-old right-handed male came to the hospital yesterday at 4:21 PM for acute stroke symptoms. Patient's symptoms started 2 weeks ago, on , 03/22/2023 with numbness of the right foot, and weakness of the right arm and leg. He thought it was a pinched nerve, and we did to see a chiropractor. Patient denied any slurred speech, facial droop, visual disturbance or any problem with walking. He finally was able to see a chiropractor yesterday at 4 PM, who checked his blood pressure was very high, and was recommended to go to the ER. Patient denies any head or neck injury. He denies any worsening of symptoms or any getting better. Vital signs on arrival blood pressure 182/101, which came down to 152/108. Pulse rate 85, temperature 98.0. Blood pressure was normal CBC, CMP. CT head showed no acute intracranial process. Remote appearing left caudate/tamez radiata nucleus and left frontal lobe injuries. On my review, there is evidence of chronic ischemia involving the left watershed territory between the left MCA/LAINEY in the frontal region. EKG shows sinus rhythm. Patient was not a candidate for TPA, as his symptoms have been present for over 10 days. Patient has history of hypertension for 2 years, diagnosed when he was undergoing dental extraction. He was seen at urgent care, so Dr. Paul, who recommended Lipitor. After dental extraction, patient stopped taking Lipitor. He is not taking any medication. Does not take any antiplatelet medication. Denies diabetes. He has not had any physical examination and does not follow up with the primary doctor. Patient has history of smoking 1 pack per day for 45 years. He does binge drink on the weekends. He also smokes marijuana, but does not do any drugs. He does have hernia for last 1 year. He is a retired for [employer] 2 years, worked with the [employer]. Review of Systems Constitutional: Denies chills, Denies fever Eyes: denies blurred vision, denies diplopia, denies pain Ears: deny: decreased hearing, ear discharge Ears, nose, mouth and throat: Denies headache, Denies nasal congestion, Denies sore throat Cardiovascular: Denies chest pain, Denies shortness of breath Respiratory: Denies cough, Denies excessive sputum Gastrointestinal: Denies abdominal pain, Denies diarrhea, Denies nausea, Denies vomiting Genitourinary: Denies incontinence, Denies urinary hesitancy Musculoskeletal: Denies low back pain, Denies myalgias, Denies neck pain Integumentary: Denies pruritus, Denies rash Neurological: Reports as per HPI Psychiatric: Denies anxiety, Denies depression Endocrine: Denies fatigue, Denies weight change Hematologic/Lymphatic: Denies easy bleeding, Denies easy bruising Past Medical History Past Medical History: No Reported History History of Any Multi-Drug Resistant Organisms: None Reported Past Surgical History: No Surgical Hx Reported Past Psychological History: No Psychological Hx Reported Smoking Status: Former smoker Past Alcohol Use History: Occasional Past Drug Use History: None Reported - Past Family History Mother Family Medical History: Cancer Father Family Medical History: Cancer Additional Family Medical History / Comment(s): colon ca Medications and Allergies Home Medications Medication Instructions Recorded Confirmed Type No Known Home Medications 04/03/23 04/03/23 History Allergies Allergy/AdvReac Type Severity Reaction Status Date / Time No Known Allergies Allergy Verified 04/03/23 18:06 Physical Examination - Vital Signs Vital Signs: Vital Signs Temp Pulse Resp BP Pulse Ox 04/04/23 07:57 75 18 145/94 99 04/04/23 04:00 70 18 132/97 97 04/04/23 00:00 65 15 143/86 96 04/03/23 22:07 75 26 H 155/90 97 04/03/23 22:00 71 17 146/102 98 04/03/23 21:00 75 16 140/75 96 04/03/23 19:00 80 18 143/106 96 04/03/23 18:00 79 18 152/108 97 04/03/23 17:30 82 17 156/98 97 04/03/23 16:36 98.4 F 82 20 152/108 97 04/03/23 16:33 98 F 85 16 182/101 97 Intake and Output 04/03/23 04/04/23 04/04/23 22:59 06:59 14:59 Other: Weight 90.718 kg Patient is an elderly male, very pleasant, in no acute distress. Patient is alert awake oriented to time place and person. Speech and language functions are normal. Patient can name and repeat very well. No aphasia or dysarthria. Attention, concentration and fund of knowledge is adequate. On cranial nerve examination, pupils are equal, round and reacting to light, visual rivera are full on confrontation, with no neglect on double simultaneous stimulation. Extraocular muscles are intact with no nystagmus. Face is symmetric, tongue protrudes to the midline. Palatal elevation and sensation normal, hearing and shoulder shrug normal, facial sensation normal. On muscle strength testing, there is mild right pronator drift about 20. The muscle strength is normal in arms and legs distally and proximally. Deep tendon reflexes are (right/left) biceps 2/1, brachioradialis 2/1, knees 2+/2+, ankles 2/2, plantars downgoing bilaterally. Sensory to touch is decreased in the right arm and right leg but equal on the face. There is no neglect on double simultaneous stimulation. Cerebellar function showed no ataxia for [id number] testing. Patient has m ild ataxia for [id number] testing on the right side only. Tone and bulk of muscles normal. rapid finger tapping is very slow on the right as compared to the left. Gait deferred.. On general examination, there is no carotid bruit or murmur, S1-S2 audible. Chest is clear on consultation. Abdomen is soft nontender. No organomegaly, bowel sounds present. Peripheral pulses are present. No edema. Results - Laboratory Findings CBC and BMP: 04/03/23 16:58 04/03/23 16:58 Abnormal Lab Findings: Abnormal Labs 04/03/23 04/03/23 16:58 16:58 BUN 22 H Triglycerides 380.00 H Cholesterol 319.00 H LDL Cholesterol, Calc 197.6 H VLDL Cholesterol, Calc 76.00 H Assessment and Plan Assessment: * Acute to subacute ischemic stroke involving the left watershed territory between LAINEY/MCA, with complete occlusion of the left ICA. * Patient has mild right-sided weakness and sensory loss. Patient's NIH stroke scale is 3 at this time. * Hypertension * Hyperlipidemia * Tobacco use * Noncompliance with medication. Plan: * MRI of the brain without contrast, evaluate for acute CVA * 2-D echo with bubble study to rule out PFO * CTA head and neck showed: Occlusion of the left ICA extending from its origin to the [place]. Right carotid bifurcation predominantly calcified plaque with less than 25-50% stenosis. No evidence of dissection of the cervical ICA or vertebral arteries. No evidence of intracranial high-grade stenosis or intracranial aneurysm. * MRA of the head without contrast and MRA of the neck with and without contrast. * Vascular surgery has seen the patient, recommending medical management, as the left ICA which is symptomatic is completely occluded, and the right ICA has no significant stenosis. * Fasting a.m. lipid panel with cholesterol 319, LDL 197, HDL 45 and triglycerides 380. Agree with starting high intensity statins with Lipitor 80 mg daily. * Hemoglobin A1c * Permissive hypertension for next 24-48 hours * Patient was loaded with aspirin 324 mg in the ER and maintained on aspirin 81 mg. We will also load with Plavix 150 mg 1 dose, and maintain on Plavix 75 daily. * Close neuro checks as per protocol. * Telemetry monitoring rule out any arrhythmia * PT, OT, speech therapy. * DVT prophylaxis: Heparin 5000 units subcu every 8 hours * Recommend complete tobacco cessation. * Neurology will continue ot follow. Thank you for the consult.
[2023-04-04] MEDS: ATORVASTATIN 80 MG TAB PO SCH (20:47)
[2023-04-05] MEDS: SODIUM CHLORIDE 0.9% 1,000 ML IV SCH ×2 (06:14→11:20)
[2023-04-05] MEDS: amLODIPine 5 MG TAB PO SCH (08:33)
[2023-04-05] MEDS: ASPIRIN 81 MG PO SCH (08:33)
[2023-04-05] MEDS: NICOTINE 21MG/24HR PATCH TRANSDERM SCH (08:33)
[2023-04-05] MEDS ORDERED: CLOPIDOGREL 75 MG TAB PO SCH (09:00)
--- NOTE | 2023-04-05 09:51 | P.PN ---
Subjective Progress Note Date: 04/05/23 Principal diagnosis: Left ICA occlusion Patient is seen and examined today as a follow-up. He is up and ambulating in his room. No reported changes through the night. No new focal deficits. Neurology started patient on aspirin 81 mg, Plavix 75 mg and is maintained on atorvastatin 80 mg daily. He is scheduled for MRA head and neck as well as MRI of brain. Objective - Vital Signs Vital signs: Vital Signs Temp 97.5 F L 04/05/23 03:10 Pulse 90 04/05/23 03:10 Resp 18 04/05/23 03:10 BP 117/85 04/05/23 03:10 Pulse Ox 97 04/05/23 03:10 FiO2 Intake & Output 04/04/23 04/05/23 04/05/23 18:59 06:59 18:59 Intake Total 350 110 Balance 350 110 Weight 90.718 kg Intake: Oral 350 110 Other: Voiding Method Toilet # Voids 1 1 - Exam General appearance: The patient is alert, oriented, appears in no acute distress. HET: Head is normocephalic and atraumatic. Pupils are equal and reactive. Neck: Supple. Heart: Regular. Lungs: Equal expansion, normal respiratory effort. Abdomen: Soft, nontender, nondistended. Extremities: Normal skin color and turgor. Palpable radial and pedal pulses. Neurological: Patient is alert and oriented 3. Speech is fluent, he answers questions appropriately and follows commands. Right upper extremity weakness. - Labs CBC & Chem 7: 04/03/23 16:58 04/03/23 16:58 Assessment and Plan Assessment: 1. Left internal carotid artery occlusion extending from its origin to [place] 2. No hemodynamically significant Right internal carotid stenosis, 25-50% stenosis per CTA 3. Right-sided weakness 4. Hypertension 5. Pack per day smoker Plan: 1. Continue symptomatic and supportive care 2. Continue with workup recommended per neurology 3. New dual antiplatelet therapy and statin 4. Maintain Optimal blood pressures 5. There is no indication for any vascular surgical intervention for left carotid occlusion. Patient will need close outpatient surveillance to monitor for right carotid stenosis. 6. Smoking cessation discussed with patient, nicotine patch prescribed Thank you for this consultation. The impression and plan of care has been dictated as directed. Dr. Sena Willams performed a history and examination of this patient, discussed the same with the dictator. I agree with the dictator's note ,documented as a scribe. Any additional findings or plans will be noted.
[2023-04-05 12:09] VITALS: RESP 16
--- NOTE | 2023-04-05 12:51 | P.PN ---
Subjective Progress Note Date: 04/05/23 Patient was seen for a follow-up. Patient states he is feeling better. Denies any new neurological symptoms. No headache. Objective - Vital Signs Vital signs: Vital Signs Temp 98 F 04/05/23 11:57 Pulse 73 04/05/23 11:57 Resp 16 04/05/23 11:57 BP 117/79 04/05/23 11:57 Pulse Ox 97 04/05/23 11:57 FiO2 Intake & Output 04/04/23 04/05/23 04/05/23 18:59 06:59 18:59 Intake Total 350 350 Balance 350 350 Weight 90.718 kg Intake: Oral 350 350 Other: Voiding Method Toilet Toilet # Voids 1 1 1 - Exam Patient is an elderly male, very pleasant, in no acute distress. Patient is alert awake oriented to time place and person. Speech and language functions are normal. Patient can name and repeat very well. No aphasia or dysarthria. Attention, concentration and fund of knowledge is adequate. On cranial nerve examination, pupils are equal, round and reacting to light, visual rivera are full on confrontation, with no neglect on double simultaneous stimulation. Extraocular muscles are intact with no nystagmus. Patient has very subtle right facial asymmetry. His tongue protrudes to the midline. Palatal elevation and sensation normal, hearing and shoulder shrug normal, facial sensation normal. On muscle strength testing, there is mild right pronation, with flexion of the elbow. The muscle strength is normal in arms and legs distally and proximally. Deep tendon reflexes are (right/left) biceps 2/1, brachioradialis 2/1, knees 2+/2+, ankles 2/2, plantars downgoing bilaterally. Sensory to touch is decreased in the right leg as compared to the left, but is equal in the arms and face. There is no neglect on double simultaneous stimulation. Cerebellar function showed no ataxia for [id number] testing. Patient has mild ataxia for jgma-[id number]-[id number] testing on the right side only. Tone and bulk of muscles normal. rapid finger tapping is very slow on the right as compared to the left. Gait deferred.. On general examination, there is no carotid bruit or murmur, S1-S2 audible. Chest is clear on consultation. Abdomen is soft nontender. No organomegaly, bowel sounds present. Peripheral pulses are present. No edema. - Labs CBC & Chem 7: 04/03/23 16:58 04/03/23 16:58 Assessment and Plan Assessment: * Acute to subacute ischemic stroke involving the left watershed territory between LAINEY/MCA, with complete occlusion of the left ICA. * Patient has mild right-sided weakness, mild sensory loss and incoordination of the right lower limb. Patient's NIH stroke scale is 3 at this time. * Hypertension * Hyperlipidemia * Tobacco use * Noncompliance with medication. Plan: * Await MRI of the brain without contrast, evaluate for acute CVA * 2-D echo showed normal EF 55-60%, normal left atrial size. No embolic source. * CTA head and neck showed: Occlusion of the left ICA extending from its origin to the [place]. Right carotid bifurcation predominantly calcified plaque with less than 25-50% stenosis. No evidence of dissection of the cervical ICA or vertebral arteries. No evidence of intracranial high-grade stenosis or intracranial aneurysm. * MRA of the head without contrast and MRA of the neck with and without contrast. * Vascular surgery has seen the patient, recommending medical management, as the left ICA which is symptomatic is completely occluded, and the right ICA has no significant stenosis. * Fasting a.m. lipid panel with cholesterol 319, LDL 197, HDL 45 and triglycerides 380. Agree with starting high intensity statins with Lipitor 80 mg daily. * Hemoglobin A1c 5.6 normal. * Optimize control of blood pressure gradually to normotensive level. * Patient was loaded with aspirin 324 mg in the ER and maintained on aspirin 81 mg. We will also load with Plavix 150 mg 1 dose, and maintain on Plavix 75 daily. * Telemetry monitoring so far showing sinus rhythm with some PVCs. No other arrhythmia. * PT, OT, speech therapy. * DVT prophylaxis: Patient is ambulatory. * Recommend complete tobacco cessation. Patient started on nicotine patches. Addendum: MRI of the brain revealed no evidence of intracranial mass or acute/subacute infarct. Remote injury to the left frontal lobe. Nonspecific white matter changes, likely secondary to small vessel ischemic disease. I personally reviewed MRI, and I feel there is evidence of subacute to chronic ischemic stroke involving the left watershed territory between the left MCA/LAINEY. It is still bright on DWI, although is negative on ADC mapping. Therefore it appears subacute going into chronic stage. MRA of head and neck revealed occlusion of the left ICA extending from its origin into the [place]. This results in back feeding of the left MCA from the [place]. No additional evidence of intracranial aneurysm or significant stenosis. No evidence of significant stenosis at the right carotid bifurcation. The vertebral arteries are patent. Clear to discharge on dual antiplatelet medication with aspirin 81 mg, Plavix 75 mg, Lipitor 80 mg. Recommend follow-up with neurologist in 1-2 weeks. Optimize control of blood pressure to target around 130-140/80-90 range. Recommend patient establish with primary physician for health maintenance.
[2023-04-05 16:27] VITALS: BP 133/99; PULSE 92; TEMP 97.7
--- NOTE | 2023-04-05 17:01 | MR ---
EXAMINATION TYPE: MR angio head wo/neck wo/w con DATE OF EXAM: 04/05/2023 4:20 PM CLINICAL INDICATION:Male, 62 years old with history of Right ICA occlusion; PHH, Right ICA occlusion COMPARISON: 04/03/2023. Technical: MRA brain: 2D and 3-D [id number] Axial with MIP and 3-D reconstruction. Performed on a separate w orkstation. MRA neck: Multiplanar, multi-sequence imaging as well as [id number] and phase was performed extra cranial vasculature of the neck. 3-D reformatted images and maximum intensity projection reformatted images were submitted for evaluation, these are performed on a separate workstation. IV Contrast: 9 cc Gadavist Findings: Vertebral arteries: The vertebral arteries are patent. Vertebral arteries are: Codominant. Basilar artery: The basilar artery is intact. The basilar artery bifurcation is normal. Internal Carotid arteries: There is an occluded left internal carotid artery as seen on CT 04/21/2023 .. The cervical, petrous, cavernous and supraclinoid segments are normal. LAINEY: Patent with no evidence of aneurysm. ACOM: Present without evidence of aneurysm. MCA: Patent with no evidence of aneurysm. COMMERCIAL ESTIMATOR: Patent with no evidence of aneurysm. PCOM: Hypoplastic bilaterally. RIGHT CAROTID SYSTEM: The common carotid artery is patent. The carotid bifurcations demonstrates no e vidence for hemodynamically significant stenosis. The internal carotid artery is patent. LEFT CAROTID SYSTEM: The common carotid artery is patent. There is redemonstration of occlusion of t he left internal carotid artery extending from its origin into the [place]. Findings unchang ed from 04/03/2023. The origins of the great vessels and vertebral arteries appear unremarkable. The vertebral arteries a re codominant. IMPRESSION: 1. Occlusion of the left internal carotid artery extending from its origin into the [place] . This results in back feeding of the left MCA from the [place]. No additional evidence of i ntracranial aneurysm or significant stenosis. 2. No evidence of significant stenosis at the right carotid bifurcation. The vertebral arteries are patent.
--- NOTE | 2023-04-05 17:02 | MR ---
EXAMINATION TYPE: MR brain wo con DATE OF EXAM: 04/05/2023 4:06 PM CLINICAL INDICATION:Male, 62 years old with history of CVA; COMPARISON: 04/03/2023. TECHNIQUE: Multi planar, multi sequence imaging was performed through the brain including: T1, T2, In version recovery, Diffusion weighted imaging, and gradient echo imaging. No gadolinium was given. FINDINGS: T2 shine through on diffusion imaging involving the frontal lobe near the watershed region of the LAINEY and MCA. No evidence for restricted diffusion. There is some blooming artifact along these area which could represent mineralization versus hemosiderin deposition from prior blood products. S cattered foci of high T2 signal intensity are seen within the periventricular white matter. Midline s tructures show no abnormality. Diffusion-weighted imaging shows no evidence of restricted diffusion. The bone marrow signal is within normal limits. Paranasal sinuses and mastoid air cells: No significant paranasal sinus disease. Visualized orbits: Orbital contents are intact. IMPRESSION: 1. No evidence of intracranial mass or acute/subacute infarct. 2. Remote injury to the left frontal lobe. 3. Nonspecific white matter changes, likely secondary to small vessel ischemic disease.
--- NOTE | 2023-04-05 17:14 | P.DS ---
Providers Date of admission: 04/03/23 20:46 Expected date of discharge: 04/05/23 Attending physician: Dustin Soliman MD Consults: 04/03/23 20:45 Consult Physician Routine Consulting Provider: Shantanu Damon Consult Reason/Comments: cva Do you want consulting provider notified?: Yes 04/04/23 04:51 Consult Physician Routine Consulting Provider: Laura Montanez Consult Reason/Comments: internal carotid artery stenosis Do you want consulting provider notified?: Yes, Notify in am Primary care physician: Stated None Hospital Course: Hypertensive urgency TIA Left carotid stenosis, 100% occlusion Right carotid stenosis, 25-50% stenosis Nicotine abuse Hyperlipidemia Hospital course: 62-year-old man with medical history of nicotine abuse presented for evaluation of hypertensive urgency with suspected subacute stroke. In the emergency room, patient was afebrile, 182/101, heart rate 85, 97% on room air. CBC was unremarkable. Basic metabolic panel was unremarkable. Liver function tests are unremarkable. Troponins less than 0.012. EKG showed normal sinus rhythm with frequent PVCs. Brain CT showed no acute intracranial process, remote appearing left caudate/tamez radiata nucleus and left frontal lobe injuries. CT angiography showed occlusion of the left ICA, right carotid bifurcation with 25- 50% stenosis. Cases assessment emergency room provider decision was made to admit the patient to the hospital for further evaluation of TIA. Pt was started on ASA, Plavix, and statin. Seen and cleared by vascular surgery and advised on need to f/u regularly for serial USs. Underwent MRI Brain which was negative for stroke. Discharged home with PCP, Vascular surgery f/u. I spent 34 minutes coordinating this discharge on 04/05 Gen: awake, alert HEENT: normocephalic, atraumatic, good hearing acuity, moist mucous membranes Resp: good air exchange, breathing comfortably with no accessory muscle use CVS: good distal perfusion x 4, GI: soft, NTTP, ND : no SPT, no CVAT, montanez catheter not present MSK: no pitting edema, no clubbing Neuro: non-focal, moving all extremities Psych: cooperative, euthymic mood Patient Condition at Discharge: Good Plan - Discharge Summary Discharge Rx Participant: No New Discharge Prescriptions: New Aspirin 81 mg PO DAILY #30 tab amLODIPine [Norvasc] 5 mg PO DAILY #30 tab Clopidogrel [Plavix] 75 mg PO DAILY #30 tab Atorvastatin [Lipitor] 80 mg PO HS #30 tab Discharge Medication List Aspirin 81 mg PO DAILY #30 tab 04/05/23 [Rx] Atorvastatin [Lipitor] 80 mg PO HS #30 tab 04/05/23 [Rx] Clopidogrel [Plavix] 75 mg PO DAILY #30 tab 04/05/23 [Rx] amLODIPine [Norvasc] 5 mg PO DAILY #30 tab 04/05/23 [Rx] Follow up Appointment(s)/Referral(s): None,Stated [Primary Care Provider] - 1-2 days Discharge/Stand Alone Forms: Area PCPs Discharge Disposition: HOME SELF-CARE
== END 2023-04-05 18:06 | disposition home or self-care (01) | DRG 65 ==
LOC: EC 16:21 → 3SCARD 20:46
PROVIDERS: ADMIT Internal Medicine; ATTEND Internal Medicine
DX: I63.89 Other cerebral infarction (principal); G81.91 Hemiplegia, unspecified affecting right dominant side; I16.1 Hypertensive emergency; I65.23 Occlusion and stenosis of bilateral carotid arteries; I10 Essential (primary) hypertension; F17.210 Nicotine dependence, cigarettes, uncomplicated; R29.703 NIHSS score 3; E78.5 Hyperlipidemia, unspecified; Z79.02 Long term (current) use of antithrombotics/antiplatelets; Z79.82 Long term (current) use of aspirin; Z79.899 Other long term (current) drug therapy; Z80.0 Family history of malignant neoplasm of digestive organs; Z91.148 Patient's other noncompliance with medication regimen for other reason; Z71.6 Tobacco abuse counseling
CPT/HCPCS: 36415; 70450; 70496; 70498; 70544; 70549; 70551; 80053; 80061; 83036; 84484; 85025; 93005; 93306; 96360; 96361; 99291

== ENCOUNTER → 2023-08-04 | Outpatient (CLI) | payer MEDICARE ==
--- NOTE | 2023-08-04 14:32 | XR ---
EXAMINATION TYPE: XR chest 2V DATE OF EXAM: 08/04/2023 COMPARISON: NONE HISTORY: Shortness of breath TECHNIQUE: Frontal and lateral views of the chest are obtained. FINDINGS: Scattered senescent parenchymal changes noted. Hyperinflation compatible with COPD. No evidence for infiltrate. No evidence for atelectasis. Heart size is stable. Mediastinal structures are stable and grossly unremarkable. No evidence for hilar prominence. Degenerative changes dorsal spine. IMPRESSION: 1. No evidence for acute pulmonary disease.
== END | disposition home or self-care (01) ==
LOC: RADXRMAIN 14:05
PROVIDERS: ATTEND Internal Medicine
DX: R06.02 Shortness of breath (principal); Z87.898 Personal history of other specified conditions; Z87.891 Personal history of nicotine dependence
CPT/HCPCS: 71046

== ENCOUNTER → 2023-09-06 | Outpatient (CLI) | payer MEDICARE ==
--- NOTE | 2023-09-06 08:08 | US ---
EXAMINATION TYPE: US abdomen complete DATE OF EXAM: 09/06/2023 COMPARISON: NONE CLINICAL INDICATION: Male, 63 years old with history of Z13.6 AAA SCR; TECHNIQUE: Multiple sonographic images of the abdomen are obtained. FINDINGS: EXAM MEASUREMENTS: Liver Length: 15.2 cm Gallbladder Wall: 0.18 cm CBD: 0.29 cm Spleen: 10.0 x 9.6 x 4.8 cm Right Kidney: 11.9 x 5.7 x 5.2 cm Left Kidney: 11.6 x 5.0 x 4.6 cm PRIMARY THERAPIST NOTES: Pancreas: Obscured by bowel gas Liver: wnl Gallbladder: Appears wnl Evidence for sonographic Rod's sign: No CBD: wnl Spleen: wnl Right Kidney: wnl Left Kidney: wnl Upper IVC: wnl Abd Aorta: No evidence of AAA The liver is homogenous. The intrahepatic portion of the IVC and proximal abdominal aorta are within normal limits. There is no evidence of cholelithiasis. Common bile duct is unremarkable. The visu alized portions of the pancreas are homogenous. The spleen is unremarkable. Kidneys are symmetric a nd free of hydronephrosis. No renal lesions are seen. IMPRESSION: No discrete abnormality seen.
== END | disposition home or self-care (01) ==
LOC: RADUSWWP 06:54
PROVIDERS: ATTEND Internal Medicine
DX: Z00.00 Encounter for general adult medical examination without abnormal findings (principal); Z13.6 Encounter for screening for cardiovascular disorders; Z86.79 Personal history of other diseases of the circulatory system
CPT/HCPCS: 76700

== ENCOUNTER 2023-09-12 08:48 | Day surgery (SDC) | payer MEDICARE ==
[~2023-09-12 08:48] MED LIST: DEXAMETHASONE SOD PHOSPHATE 4 MG/ML 1 ML VIAL IV ONE; HYDROmorphone 0.5 MG/0.5 ML SYRINGE IVP PRN; ONDANSETRON 4 MG/2 ML VIAL IVP ONE
[2023-09-12] MEDS: LACTATED RINGERS 1,000 ML IV SCH (09:57)
[2023-09-12 10:00] VITALS: TEMP 97.1
[2023-09-12] MEDS ORDERED: PHENYLEPHRINE-0.9% NACL SYG 1,000 MCG/10 ML SYRINGE ONE (10:35)
[2023-09-12] MEDS ORDERED: PROPOFOL 10 MG/ML 20 ML VIAL IV ONE (10:35)
--- NOTE | 2023-09-12 11:01 | P.PCN ---
Date of Procedure: 09/12/23 Procedure(s) Performed: BRIEF HISTORY: Patient is a 63-year-old pleasant male scheduled for an elective colonoscopy as a part of screening for colon cancer. His father was diagnosed with colon cancer at age 60 PROCEDURE PERFORMED: Colonoscop with snare polypectomy y PREOPERATIVE DIAGNOSIS: Screening for colon cancer/Family history of colon cancer. IV sedation per Anesthesia. PROCEDURE: After informed consent was obtained, the patient, was brought into the endoscopy unit. IV sedation was administered by Anesthesia under continuous monitoring. Digital rectal examination was normal. Initially the Olympus CF-160 flexible video colonoscope was then inserted in the rectum, gradually advanced into the cecum without any difficulty. Careful examination was performed as the scope was gradually being withdrawn. Ileocecal valve and the appendiceal orifice were visualized and appeared normal. Prep was excellent. Mucosa of the cecum, ascending colon, transverse colon, descending colon, sigmoid colon,appeared normal. In the rectum; there was a 7 mm polyp removed by snare polypectomy. In the rectum there were 4 polyps measuring between 5 mm to 1 cm in size all of which were removed by snare polypectomy. Retroflexion was performed in the rectum and no lesions were seen. The patient tolerated the procedure well. IMPRESSION: 7 mm rectosigmoid polyp status post polypectomy 5 mm 2, 8 mm and 1 cm rectal polyps status post polypectomy RECOMMENDATIONS: Findings of this examination were discussed with the patientas well as his family. He was advised to follow with the biopsy results. If the biopsy result he can have a repeat colonoscopy in 3 years.].
[2023-09-12 11:11] VITALS: RESP 16
[2023-09-12 11:46] VITALS: BP 120/78; PULSE 77
== END 2023-09-12 11:34 | disposition home or self-care (01) ==
LOC: ORWHC2ENDO 08:48
PROVIDERS: ATTEND Internal Medicine Gastroenterology
DX: Z12.11 Encounter for screening for malignant neoplasm of colon (principal); K62.1 Rectal polyp; I10 Essential (primary) hypertension; E78.5 Hyperlipidemia, unspecified; Z86.73 Personal history of transient ischemic attack (TIA), and cerebral infarction without residual deficits; Z80.0 Family history of malignant neoplasm of digestive organs; Z79.82 Long term (current) use of aspirin; Z79.899 Other long term (current) drug therapy
CPT/HCPCS: 88305; 45385; J2704; J2371

== ENCOUNTER → 2024-11-07 | Outpatient (CLI) | payer MEDICARE ==
--- NOTE | 2024-11-07 08:33 | US ---
EXAMINATION TYPE: US abdomen complete DATE OF EXAM: 11/07/2024 COMPARISON: US 09/06/2023 CLINICAL INDICATION: Male, 64 years old with history of R74.8 ABNORMAL LEVELS OF OTHER SERUM ENZYMES; Elevated liver enzymes. TECHNIQUE: Grayscale and color Doppler imaging of the abdomen was performed. FINDINGS: EXAM MEASUREMENTS: Liver Length: 17.1 cm Gallbladder Wall: 0.28 cm CBD: Obscured Spleen: 10.3 cm Right Kidney: 11.9 x 5.7 x 6.6 cm Left Kidney: 11.5 x 5.2 x 5.9 cm BOWL TURNER NOTES: Exam is limited due to gas. Pancreas: *Obscured Liver: Appears coarse/heterogeneous. *Measures upper limits. Gallbladder: Appears anechoic Evidence for sonographic Rod's sign: No CBD: Obscured Spleen: Slightly limited, no abnormalities seen Right Kidney: wnl, No hydronephrosis, calculi or masses seen Left Kidney: wnl, No hydronephrosis, calculi or masses seen Upper IVC: wnl Abd Aorta: Mid segment appears ectatic = 2.8 cm. Remainder of aorta was obscured. The pancreas is obscured by overlying bowel gas. The liver is coarse and heterogenous and measures at the upper limits of normal size. No surface nodularity or focal lesion identified. Gallbladder demon strates no wall thickening, stones or surrounding fluid. Negative sonographic Rod sign. The common bile duct is obscured by overlying bowel gas. The visualized spleen is unremarkable. Both kidneys de monstrate no hydronephrosis, shadowing calculus or solid renal mass. The visualized portion of the up per IVC is within normal limits. The midportion of the abdominal aorta is ectatic measuring 2.8 cm. T he remaining portion is obscured by overlying bowel gas. IMPRESSION: 1. Heterogenous coarsened echotexture of the liver without focal lesion or overt cirrhosis. Possible nonspecific hepatocellular disease. 2. Ectasia of the mid abdominal aorta measuring up to 2.8 cm. [facility], , 11/07/2024 8:31 AM
== END | disposition home or self-care (01) ==
LOC: RADUSWWP 07:47
PROVIDERS: ATTEND Internal Medicine
DX: I77.811 Abdominal aortic ectasia (principal); R74.8 Abnormal levels of other serum enzymes
CPT/HCPCS: 76700